=== PATIENT | male | born 1975 | race Caucasian/White ===

== ENCOUNTER → 2022-08-18 08:00 | Outpatient (BNVA) | payer BC, SELFPAY | PROVIDERS: Family Provider Family Medicine; PCP Family Medicine; Visit Provider Family Medicine | DX: Z00.00 Encounter for general adult medical examination without abnormal findings (principal) | CPT/HCPCS: 80053; 80061 ==

== ENCOUNTER → 2022-08-28 07:55 | Outpatient (BNVA) | payer BC, SELFPAY | PROVIDERS: Family Provider Family Medicine; PCP Family Medicine; Visit Provider Family Medicine | DX: Z00.00 Encounter for general adult medical examination without abnormal findings (principal); R73.9 Hyperglycemia, unspecified | CPT/HCPCS: 83036 ==

== ENCOUNTER 2022-11-22 06:53 | Outpatient (CLI) | payer BC, SELFPAY ==
--- NOTE | 2022-11-22 07:15 | MR_ITS ---
WS: [id number] MRI LEFT KNEE HISTORY: knee instability, history of prior LEFT knee meniscal repair. COMPARISON: None available. Anterior cruciate ligament: Marked thinning of the ligament and increased signal throughout. Some of the fibers are still intact. Posterior cruciate ligament: Intact. Medial collateral ligament: Intact but displaced MCL. There is fluid adjacent to the MCL and the MCL is displaced by the extruded meniscus and osteophytes. Posterior lateral corner structures: Abnormal signal in the popliteus tendon over the lateral knee. C onsistent with a tear. The abnormal signal extends distally just superior to the fibular head. No ful l-thickness tear. Medial menisci: Extruded anterior horn with abnormal signal at the free edge. Posterior horn is small caliber with increased signal. Lateral meniscus: Intact. Normal signal, size and shape. Extensor mechanism: Quadriceps tendon appears normal. Marked tendinopathy throughout the patellar ten don. Multifocal areas of increased T2 signal. Fluid and soft tissue: Small suprapatellar joint effusion. No Llamas's cyst. Osseous and articular structures: Patellofemoral compartment: Marked narrowing of patellofemoral joint. Large hypertrophic osteophytes involving the patella and fibular articulations. Moderate chondromalacia lateral patellar facet. Medial compartment: Severe narrowing medial compartment with complete loss of cartilage. Marrow edema along the weightbearing surface of the femoral condyle and the tibial plateau with marginal osteophy angy from the joint line. Lateral compartment: Mild narrowing of the lateral compartment. Thinning and fissuring of the cartila ge. No fractures or marrow edema. Osteophytes from the joint line. Small amount of edema in the infrapatellar fat pad. MR/MR knee LT wo con* [id number] IMPRESSION: 1. Severe medial compartment osteoarthritis with loss of cartilage and marrow edema. 2. Extruded meniscus in the medial compartment causing displacement of the MCL . 3. Complex tear anterior horn of the medial meniscus with additional intrasubs tance degeneration in the posterior horn and possible tear. 4. Marked thinning and increased T2 signal throughout the ACL. Partial tear. N o complete tear. 5. Moderate to severe patellofemoral osteoarthritis with large hypertrophic os teophytes. 6. Small joint effusion. 7. Popliteus tendon sprain. 8. Multifocal tendinopathy in the patellar tendon.
== END 2022-11-22 06:54 | disposition home or self-care (01) ==
LOC: RAD 06:57
PROVIDERS: Family Provider Family Medicine; PCP Family Medicine; Visit Provider Family Medicine
DX: M17.12 Unilateral primary osteoarthritis, left knee (principal); M25.369 Other instability, unspecified knee; M25.762 Osteophyte, left knee; M25.462 Effusion, left knee; S83.8X2A Sprain of other specified parts of left knee, initial encounter; M22.42 Chondromalacia patellae, left knee; X58.XXXA Exposure to other specified factors, initial encounter; Y93.9 Activity, unspecified; Y92.9 Unspecified place or not applicable; Y99.9 Unspecified external cause status
CPT/HCPCS: 73721

== ENCOUNTER → 2022-12-14 09:26 | Outpatient (BNVA) | payer BC, SELFPAY | PROVIDERS: Family Provider Family Medicine; PCP Family Medicine; Referring Provider Family Medicine; Visit Provider Student in an Organized Health Care Education/Training Program | DX: M17.12 Unilateral primary osteoarthritis, left knee (principal) | CPT/HCPCS: 73560; 73565 ==

== ENCOUNTER 2022-12-14 11:04 | Outpatient (CLI) | payer BC, SELFPAY | END 2022-12-14 11:05 | disposition home or self-care (01) | LOC: SPT 11:05 | PROVIDERS: Family Provider Family Medicine; PCP Family Medicine; Visit Provider Student in an Organized Health Care Education/Training Program | DX: Z46.89 Encounter for fitting and adjustment of other specified devices (principal); M17.12 Unilateral primary osteoarthritis, left knee | CPT/HCPCS: 97760; L1851 ==

== ENCOUNTER 2024-03-30 17:45 | Emergency (ER) | payer BC, SELFPAY ==
[2024-03-30] VITALS (9 sets, daily range): BP systolic 123–202; BP diastolic 75–119; PULSE 74–88; RESP 8–20; TEMP 36.9; O2SAT 92–97; BMI 46.7
--- NOTE | 2024-03-30 17:47 | XRR_ITS ---
PROCEDURE INFORMATION: Exam: XR Chest Exam date and time: 03/30/2024 6:25 PM Age: 49 years old Clinical indication: Chest pressure and radiating; Patient HX: PT here via pov with C/O chest pain. PT states chest pain started this morning. PT reports cp radiates into left arm. PT reports headache. PT reports a HX of HTN. TECHNIQUE: Imaging protocol: Radiologic exam of the chest. Views: 1 view. COMPARISON: No relevant prior studies available. FINDINGS: Lungs: Unremarkable. No consolidation. Pleural spaces: Unremarkable. No pleural effusion. No pneumothorax. Heart/Mediastinum: Unremarkable. No cardiomegaly. Bones/joints: Unremarkable. XR/XR chest 1V portable [id number] IMPRESSION: No acute findings.
--- NOTE | 2024-03-30 17:47 | ECG_ITS ---
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 Measurements Intervals [place] Rate: 97 P: 56 IA: 160 QRS: 46 QRSD: 93 T: 45 QT: 341 QTc: 433 Interpretive Statements SINUS RHYTHM No previous ECG available for comparison Electronically Signed On 03-31-2024 11:11:24 CDT by Valeriy Matos M.D. [id number]
[2024-03-30 18:24] LABS: Basophils % 0.5 %; Eosinophils # 0.1 10^3/uL (0.0-0.8); Lymphocytes # 2.4 10^3/uL (0.8-4.8); Lymphocytes % 33.2 %; Mean Corpuscular HGB Conc 33.6 g/dL (30-55); Mean Corpuscular Hemoglobin 31.8 pg (27-33); Mean Corpuscular Volume 94.5 fl (82-101); Mean Platelet Volume 9.4 fL (7.4-10.4); Monocytes # 0.6 10^3/uL (0.2-0.9); Monocytes % 8.6 %; Neutrophils # 4.14 10^3/uL (1.8-7.7); Neutrophils % 56.4 %; Nucleated Red Blood Cells % 0 %; Platelet Count 183 10^3/cmm (157-399); Red Blood Count 5.29 10^6/uL (3.85-5.65); Red Cell Distribution Width 12.1 % (12.1-15.1); White Blood Count 7.33 10^3/uL (3.29-11.43)
[2024-03-30 18:45] LABS: Alanine Aminotransferase 42 U/L (0-41); Albumin Level 4.6 g/dL (3.5-5.2); Alkaline Phosphatase 91 U/L (40-130); Aspartate Amino Transferase 40 U/L (0-40); Blood Urea Nitrogen 16 mg/dL (6-20); Calcium 9.1 mg/dL (8.5-10.5); Carbon Dioxide 24 mmol/L (22-29); Chloride 100 mmol/L (98-107); Globulin 2.6 g/dL (1.3-4.6); Glomerular Filtration Rate 89.3 mL/min (90-130); Glucose 96 mg/dL (65-115); Lipase 17 U/L (13-60); Osmolality Calculated 289 mOsm/kg (285-295); Sodium 139 mmol/L (136-145); Total Bilirubin 0.7 mg/dL (0.15-1.2); Total Protein 7.2 g/dL (6.6-8.7)
[2024-03-30 18:51] LABS: Troponin(5th) Baseline 11 ng/L (0-15)
--- NOTE | 2024-03-30 19:14 | W.ED.CHESTPA ---
HPI - Chest Pain General: Chief Complaint: Chest Pain Stated Complaint: Chest Pain, tight neck, numbness in left arm Time Seen by Provider: 03/30/24 18:49 History of Present Illness: 49-year-old male who presents with chest pain which she states started this morning. He describes it as a heavy sensation in his anterior chest radiating into his neck and down his left arm. He has had some associated diaphoresis but he states that it is usual for him to have sweats. He has untreated hypertension. He denies associated shortness of breath or nausea. No prior cardiac history. He does have a family history of cardiac disease. He is non-smoker. Rates his pain 7 out of 10. He denies leg pain or leg swelling. No previous history of DVT or pulmonary embolism. 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 #1 ea 12/14/22 celecoxib 100 mg capsule 100 mg PO BID #60 caps 07/31/23 lisinopril 20 mg tablet 20 mg PO DAILY #30 tabs 03/30/24 Allergies Allergy/AdvReac Type Severity Reaction Status Date / Time No Known Allergies Allergy Verified 03/30/24 18:04 Review of Systems General: Reports: 10 or more systems reviewed and unremarkable except in HPI and below PFSH ED PFSH: Social History Smoking and tobacco/nicotine status: former use of tobacco/nicotine Alcohol intake: current Alcohol intake frequency: few times a month Physical Exam Const: COMMON NORMALS: no acute distress, healthy appearing and alert HENMT: COMMON NORMALS: normocephalic and atraumatic HEAD & SCALP: normocephalic and atraumatic Chest: OTHER: Nontender to palpation Resp: COMMON NORMALS: normal respiratory effort and No retractions Cardio: COMMON NORMALS: Peripheral pulses 2+ throughout PERIPHERAL PULSES: Peripheral pulses 2+ throughout GI: OTHER: Abdomen is soft, nontender, negative Milton sign Extremity: OTHER: No tenderness or swelling, negative Homans, no calf tenderness bilaterally Neuro: SENSORIUM/ORIENTATION: Yes alert Course ED course: Patient is been evaluated in the emergency department. He had an IV placed and labs obtained. He is at serial EKGs, both of which are negative for acute ischemic changes per my interpretation. He has had serial troponins, the initial troponin was 11, repeat 2-hour troponin is 8.27 with a delta of -0.273 which is within normal range per my interpretation. Patient's chest x-ray from interpretation appears normal without acute infiltrate or effusion or other acute findings. Patient's been given 4 baby aspirin and sublingual nitroglycerin with resolution of his chest pain as well as improvement of his blood pressure. His blood pressure now is 123/75 and his chest pain is completely resolved. I feel that the patient's chest pain was all related to his uncontrolled hypertension. Have given the patient lisinopril 20 mg p.o. in the emergency department. Will plan to start him on the same daily dose. If given him a prescription for 30 days and given him parameters as far as return precautions ago. Have instructed him to monitor his blood pressure morning and evening and keep a log of those values. I have instructed him to be on a low-salt diet. He should follow-up with his primary care provider this week to get set up for an outpatient stress test and within the next 1 to 2 weeks for blood pressure recheck. Vital Signs: Vital signs: Vital Signs Temperature 98.4 F 03/30/24 17:59 Pulse Rate 74 03/30/24 20:45 Respiratory Rate 17 03/30/24 20:45 Blood Pressure 123/75 03/30/24 20:45 Pulse Oximetry 96 03/30/24 20:45 Oxygen Delivery Me thod Room Air 03/30/24 19:30 MDM - Chest Pain Medical Decision Making 49-year-old male who presents with chest pain which has had all day. He is also hypertensive. He has a family history of cardiac disease but no other risk factors. He has had an EKG performed which shows no acute ischemic changes per my interpretation. Will give the patient 4 baby aspirin and try sublingual nitroglycerin to see if that helps his pain as well as helps his blood pressure. He is hypertensive, 202/119. Will wait on the troponin levels. Do not feel the patient has a pulmonary embolism as he is not tachypneic, tachycardic or hypoxic and and the pain is not pleuritic Lab Data 03/30/24 18:16 03/30/24 18:16 Radiology Impressions Chest X-Ray 03/30/24 17:47 IMPRESSION: No acute findings. Laboratory Results WBC 7.33 10^3/uL (3.29-11.43) 03/30/24 18:16 RBC 5.29 10^6/uL (3.85-5.65) 03/30/24 18:16 Hgb 16.80 g/dL (11.27-16.99) 03/30/24 18:16 Hct 50.0 % (37-53) 03/30/24 18:16 MCV 94.5 fl (82-101) 03/30/24 18:16 MCH 31.8 pg (27-33) 03/30/24 18:16 MCHC 33.6 g/dL (30-55) 03/30/24 18:16 RDW 12.1 % (12.1-15.1) 03/30/24 18:16 Plt Count 183 10^3/cmm (157-399) 03/30/24 18:16 MPV 9.4 fL (7.4-10.4) 03/30/24 18:16 Neut % (Auto) 56.4 % 03/30/24 18:16 Lymph % (Auto) 33.2 % 03/30/24 18:16 [place] % (Auto) 8.6 % 03/30/24 18:16 Eos % (Auto) 1.0 % 03/30/24 18:16 Baso % (Auto) 0.5 % 03/30/24 18:16 Neut # (Auto) 4.14 10^3/uL (1.8-7.7) 03/30/24 18:16 Lymph # (Auto) 2.4 10^3/uL (0.8-4.8) 03/30/24 18:16 [place] # (Auto) 0.6 10^3/uL (0.2-0.9) 03/30/24 18:16 Eos # (Auto) 0.1 10^3/uL (0.0-0.8) 03/30/24 18:16 Baso # (Auto) 0.0 10^3/uL (0.0-0.1) 03/30/24 18:16 Nucleated RBC % (auto) 0 % 03/30/24 18:16 Nucleated RBCs # 0.0 /100WBC 03/30/24 18:16 PT 12.40 SECONDS (12.1-14.9) 03/30/24 18:16 INR 0.90 (0.8-1.2) 03/30/24 18:16 Sodium 139 mmol/L (136-145) 03/30/24 18:16 Potassium 4.0 mmol/L (3.5-5.1) 03/30/24 18:16 Chloride 100 mmol/L (98-107) 03/30/24 18:16 Carbon Dioxide 24 mmol/L (22-29) 03/30/24 18:16 Anion Gap 19.0 (5-19) 03/30/24 18:16 BUN 16 mg/dL (6-20) 03/30/24 18:16 Creatinine 0.9 mg/dL (0.7-1.2) 03/30/24 18:16 GFR Calculation 89.3 mL/min (90-130) L 03/30/24 18:16 Glucose 96 mg/dL (65-115) 03/30/24 18:16 Calculated Osmolality 289 mOsm/kg (285-295) 03/30/24 18:16 Calcium 9.1 mg/dL (8.5-10.5) 03/30/24 18:16 Total Bilirubin 0.7 mg/dL (0.15-1.2) 03/30/24 18:16 AST 40 U/L (0-40) 03/30/24 18:16 ALT 42 U/L (0-41) H 03/30/24 18:16 Alkaline Phosphatase 91 U/L (40-130) 03/30/24 18:16 Troponin T Baseline 11 ng/L (0-15) 03/30/24 18:16 Troponin T 120 Minute 8.27 ng/L (0-15) 03/30/24 20:16 Delta Troponin T -2.73 ABS# (0-10) L 03/30/24 20:16 Total Protein 7.2 g/dL (6.6-8.7) 03/30/24 18:16 Albumin 4.6 g/dL (3.5-5.2) 03/30/24 18:16 Globulin 2.6 g/dL (1.3-4.6) 03/30/24 18:16 Lipase 17 U/L (13-60) 03/30/24 18:16 All radiology interpretation(s) finalized by discharge ED provider radiology interpretation(s): Chest x-ray per my interpretation shows no infiltrate or effusion or acute findings EKG Data EKG 1: I personally reviewed and interpreted this EKG as follows: Interpretation: Per my interpretation, no ST segment elevation or depression or acute ischemic changes. EKG 2: I personally reviewed and interpreted this EKG as follows: EKG interpretation date: 03/30/24 EKG interpretation time: 19:54 Interpretation: Rate 92, normal sinus rhythm, no acute ST segment elevation or depression, normal axis per my interpretation Clincial Decision Support The following clinical decision support tools were used to aid in care of the patient HEART Score -> History: Slightly Suspicous, EKG: Normal, Age: 45-64 yrs, Risk Factors: 1 or 2 Risk Factors, Troponin: Baseline Trop <16 ng/L. Resulting HEART Score: 2. 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 Monitor your blood pressure morning and evening and keep a log of those numbers. You need to be on a low-salt diet. Make sure you stay well-hydrated. Return to the emergency department if you have recurrent chest pain. If your blood pressure remains persistently elevated, especially if your systolic or top number is greater than 220 or your diastolic or bottom numbers greater than 120, you need to return to the emergency department. If your blood pressure on the top is 90 or less, hold your lisinopril and then cut the next dose in half. Call your primary care provider on Sunday to get set up for an outpatient stress test first available. You need to follow-up in the next 1 to 2 weeks with your primary care provider for a blood pressure recheck. Avoid being out in the heat. 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
[2024-03-30] MEDS: aspirin 81 mg Chew Tablet 324 MG PO (19:17)
[2024-03-30] MEDS: nitroglycerin 0.4 mg sublingual Tablet SUBLINGUAL ×3 (19:18→19:47)
--- NOTE | 2024-03-30 19:47 | ECG_ITS ---
[facility] Test Date: 2024-03-30 Pat Name: Sp Petty Department: Room: Gender: Male Transcription: : 1975 Requested By: Kermit Lopez Order Number: [id number] Damaris MD: Valeriy Matos M.D. Measurements Intervals [place] Rate: 92 P: 64 GA: 159 QRS: 48 QRSD: 89 T: 38 QT: 370 QTc: 459 Interpretive Statements SINUS RHYTHM Compared to ECG 03/30/2024 17:45:36 No significant changes Electronically Signed On 03-31-2024 11:12:55 CDT by Valeriy Matos M.D. [id number]
[2024-03-30 20:40] LABS: Troponin 5 2HR 8.27 ng/L (0-15)
[2024-03-30 20:42] LABS: Troponin 5 2HR Delta -2.73 ABS# (0-10)
[2024-03-30] MEDS: lisinopril 20 mg Tablet PO (20:56)
== END 2024-03-30 21:08 | disposition home or self-care (01) ==
PROVIDERS: Emergency Medicine; Emergency Provider Emergency Medicine; Family Provider Family Medicine; PCP Family Medicine
DX: R07.9 Chest pain, unspecified (principal); I10 Essential (primary) hypertension; Z87.891 Personal history of nicotine dependence
CPT/HCPCS: 36415; 71045; 80053; 83690; 84484; 85025; 85610; 93005; 99285

== ENCOUNTER → 2025-07-01 09:06 | Outpatient (BNVA) | payer BC, SELFPAY | PROVIDERS: Family Provider Family Medicine; PCP Family Medicine; Visit Provider Physician Assistant | DX: M17.12 Unilateral primary osteoarthritis, left knee (principal); M17.11 Unilateral primary osteoarthritis, right knee | CPT/HCPCS: 73560; 73565 ==